=== PATIENT | male | born 1955 | race African-American/Black ===

== ENCOUNTER 2021-07-22 07:32 | Outpatient (CLI) | payer OTHER, SELFPAY ==
--- NOTE | ~2021-07-22 | PE_ITS ---
EXAMINATION: PET skull to mid thigh DATE: 07/22/2021 09:39 INDICATION: Other nonspecific abnormal finding in lung field. TECHNIQUE: Blood glucose level was 92 mg/dL. 10.27 mCi of 18-fluorodeoxyglucose (18-FDG) was administ ered i.v. Low dose computed tomography (CT) images were acquired from the base of the brain to the pr oximal thighs for attenuation correction and anatomic localization. Automated exposure control was em ployed. Dose-length product (DLP) was 766 mGy-cm. Positron emission tomography (PET) images were acqu ired in the same distribution. COMPARISON: None FINDINGS: Head/neck: There is increased activity in the oral cavity, oropharynx, and glottis without abnormal C T correlate, likely physiologic. Chest: There is a 2.1 x 1.2 cm wedge-shaped nodule in right lung upper lobe without increased activit y. There is a 7 mm nodule in right upper lobe without increased activity. No pleural effusion. The he art size is normal. No pericardial effusion. Abdomen/pelvis/proximal thighs: The liver, spleen, gallbladder, pancreas, adrenal glands, and kidneys are normal. There are no dilated loops of bowel. There are changes of appendectomy. There are no pat hologically enlarged lymph nodes. There is no free intraperitoneal fluid. There is an umbilical herni a containing fat. There is no osseous malignancy. IMPRESSION: 1. Right lung upper lobe nodules without increased activity, probably benign. Noncontrast low-dose ch est CT is recommended in 6 months. Reviewed, dictated and finalized at location A. [employer] IMPRESSION: 1. Right lung upper lobe nodules without increased activity, probably benign. N oncontrast low-dose chest CT is recommended in 6 months.
[2021-07-22 07:59] LABS: Glucose Point of Care 92 mg/dl (65-105)
== END 2021-07-22 07:33 | disposition home or self-care (01) ==
LOC: ANHIMG 07:36
PROVIDERS: PCP Nurse Practitioner Family; Visit Provider Nurse Practitioner
DX: R91.8 Other nonspecific abnormal finding of lung field (principal)
CPT/HCPCS: 78815; A9552

== ENCOUNTER 2021-09-02 13:56 | Outpatient (RCR) | payer OTHER, SELFPAY ==
--- NOTE | 2021-09-02 15:36 | PTOPEVAL ---
PHYSICAL THERAPY EVALUATION and DISCHARGE NOTE Thank you for referring Marco A Donnelly to [facility].? The patient was not scheduled for further appointments as he is not able to return for follow-ups for lack of transportation. He was instructed to call with questions. Please review, sign, date and return this plan of care TANA. I agree with and certify that the following plan of care is medically necessary. Referring Physician Date Attending Provider: Cj Salas MD Evaluation Diagnosis urinary leakage Onset 06/27/21 Subjective Information Marco A notes that he is Query Text:As Reported By Patient/ experiencing urinary leakage. Family He had a prostectomy on . He was having a significant amount of trouble holding his urine almost leaking all day and about every hour he would have to change his depends/pad. States that lately he feels like he is able to clench and then go to the bathroom and there is some urine in his bladder that he can empty. Goes to the bathroom about 2- 3x/day and 2x through the night. He does experience stress incontinence with coughing/sneezing he can feel the leakage but other than that he does not have a strong urge to go to the bathroom. Recently he has been feeling better that urge to go the bathroom but he is usually already leaking by the time he gets to the toilet. Pain Assessment Timing of Pain Assessment Timing of Pain Assessment Assessment Self Report Self Report Pain Level 0 Pain Score Pain Score 0: Self Report Pelvic Health Evaluation Current/Past Medical History Prior Function no leakage prior to prostectomy Type of Protective Pads Diaper/Depends,Pad Leakage Cough/Sneeze,Walking to Bathroom Leakage Amounts Wets Clothing Pelvic Health Therapy Pelvic Health Exercise Isolated Levator Ani Contraction [id number] in sitting and Query Text:Position, Hold/Relaxation hooklying Time, Repetitions Overflow Technique, Hip Add with Ball performed in hooklying x15 Hip, Hip Abd with Band
== END 2021-09-03 14:26 | disposition home or self-care (01) ==
LOC: ANHPT 13:56
PROVIDERS: PCP Nurse Practitioner Family; Visit Provider Urology
DX: R32 Unspecified urinary incontinence (principal)
CPT/HCPCS: 97110; 97163